=== PATIENT | female | born 1990 | race African-American/Black ===

== ENCOUNTER 2023-09-06 09:08 | Inpatient (IN) | payer BC, OTHER ==
[2023-09-06 10:07] LABS: BASO % 0.4 % (0-2.0); EOS % 0.3 % (0-4.5); HEMATOCRIT 33.6 % (32.4-45.2); HEMOGLOBIN 10.5 GM/dL (10.7-15.3); LYMPH % 20.5 % (8-40); MCH 24.6 pg (25.7-33.7); MCHC 31.2 g/dl (32.0-36.0); MEAN CELL VOLUME 78.9 fl (80-96); MEAN PLT VOLUME 8.1 fl (7.5-11.1); MONO % 4.8 % (3.8-10.2); PLATELET COUNT 315 10^3/uL (134-434); RBC 4.26 M/mm3 (3.60-5.2); RDW 18.8 % (11.6-15.6); WHITE BLOOD COUNT 9.5 K/mm3 (4.0-10.0)
[2023-09-06 10:14] LABS: INR 0.98 (0.83-1.09); PROTHROMBIN TIME (PATIENT) 11.4 SEC (9.7-13.0)
[2023-09-06 10:21] LABS: POTASSIUM 3.2 mmol/L (3.5-5.1)
[2023-09-06 10:23] LABS: CALCIUM 8.2 mg/dL (8.5-10.1)
[2023-09-06 10:24] LABS: BLOOD UREA NITROGEN 4.6 mg/dL (7-18)
[2023-09-06 10:27] LABS: CREATININE 0.5 mg/dL (0.55-1.3)
[2023-09-06 10:59] VITALS: BMI 38.7
[2023-09-06] MEDS: ELECTROLYTE-148 SOLN 1,000 ML IV SCH (12:00)
[2023-09-06] MEDS: OXYTOCIN 30 UNITS in 0.9% NS 30 UNIT/500 ML INFUS.BAG IVPB SCH (12:50)
[2023-09-06] MEDS ORDERED: FENTANYL/BUPIVACAINE/NS/PF - PCEA - 50 ML DISP.SYRIN EP ONE (20:47)
[2023-09-06] MEDS ORDERED: LIDOCAINE HCL/EPINEPHRINE/PF 10 ML VIAL ONE (21:08)
[2023-09-06] MEDS ORDERED: BUPIVACAINE HCL/PF 0.25% (2.5MG/ML) 10 ML VIAL ONE (21:08)
[2023-09-06] MEDS: FENTANYL/BUPIVACAINE/NS/PF - PCEA - 50 ML DISP.SYRIN EP SCH (21:30)
[2023-09-06] MEDS ORDERED: NALOXONE HCL 0.4 MG/ML VIAL IVPUSH PRN (21:40)
[2023-09-07] MEDS ORDERED: FENTANYL/BUPIVACAINE/NS/PF - PCEA - 50 ML DISP.SYRIN EP ONE ×4 (02:48→16:17)
[2023-09-07] MEDS: FENTANYL/BUPIVACAINE/NS/PF - PCEA - 50 ML DISP.SYRIN EP SCH ×4 (02:50→16:25)
[2023-09-07] MEDS: ELECTROLYTE-148 SOLN 1,000 ML IV SCH ×2 (08:28→16:20)
[2023-09-07] MEDS ORDERED: OXYTOCIN 30 UNITS in 0.9% NS 30 UNIT/500 ML INFUS.BAG IVPB ONE ×2 (15:23→19:45)
[2023-09-07] MEDS: OXYTOCIN 30 UNITS in 0.9% NS 30 UNIT/500 ML INFUS.BAG IVPB SCH (16:00)
[2023-09-07] MEDS ORDERED: SODIUM BICARBONATE 8.4% 50 MEQ/50 ML DISP.SYRIN ONE (19:45)
[2023-09-07] MEDS ORDERED: LIDOCAINE HCL/EPINEPHRINE/PF 10 ML VIAL ONE (19:45)
[2023-09-07] MEDS ORDERED: KETOROLAC TROMETHAMINE 30 MG/1 ML VIAL ONE ×2 (19:46→21:33)
[2023-09-07] MEDS ORDERED: ceFAZolin SODIUM 1 GM VIAL ONE (19:46)
[2023-09-07] MEDS ORDERED: PHENYLEPHRINE HCL 10 MG/1 ML SINGLE DOSE VIAL ONE (19:46)
[2023-09-07] MEDS ORDERED: ONDANSETRON 4 MG/2 ML VIAL ONE (19:46)
[2023-09-07] MEDS ORDERED: morphine SULFATE/PF 1 MG/2 ML (2cc Syringe - QUVA) ONE (19:46)
[2023-09-07] MEDS ORDERED: FENTANYL CITRATE/PF 50 MCG/ML VIAL ONE (19:47)
[2023-09-07] MEDS ORDERED: SODIUM CHLORIDE 0.9% P/F 10 ML VIAL IJ ONE (19:48)
[2023-09-07 21:48] LABS: CORD BASE EXCESS -2.2 mmol/L (0-2); CORD HCO3 24.1 mmHg (20-29); CORD PCO2 46.6 mmHg (30-78); CORD pH 7.331 (7.14-7.44)
[2023-09-07] MEDS ORDERED: morphine SULFATE/PF 1 MG/2 ML (2cc Syringe - QUVA) IT ONE (21:54)
[2023-09-07] MEDS ORDERED: ONDANSETRON 4 MG/2 ML VIAL IVPUSH PRN (21:54)
[2023-09-07] MEDS ORDERED: METHYLERGONOVINE MALEATE 0.2 MG/1 ML AMP IM PRN (22:41)
[2023-09-08] MEDS: ACETAMINOPHEN 1000 MG/100 ML BAG IVPB SCH ×2 (00:25→03:52)
[2023-09-08] MEDS: FENTANYL/BUPIVACAINE/NS/PF - PCEA - 50 ML DISP.SYRIN EP SCH (00:25)
[2023-09-08] MEDS: IBUPROFEN 800 MG/8 ML IJ IVPB SCH ×2 (00:25→06:32)
[2023-09-08] MEDS: OXYTOCIN 20 UNITS in 0.9% NS 20 UNIT/1,000 ML INFUS.BAG IV SCH ×2 (00:26→03:51)
[2023-09-08 08:01] LABS: BASO % 0.4 % (0-2.0); EOS % 0.1 % (0-4.5); HEMATOCRIT 30.6 % (32.4-45.2); HEMOGLOBIN 9.5 GM/dL (10.7-15.3); LYMPH % 17.1 % (8-40); MCH 24.7 pg (25.7-33.7); MCHC 31.1 g/dl (32.0-36.0); MEAN CELL VOLUME 79.4 fl (80-96); MEAN PLT VOLUME 8.2 fl (7.5-11.1); MONO % 6.1 % (3.8-10.2); NEUT % 76.3 % (42.8-82.8); PLATELET COUNT 279 10^3/uL (134-434); RBC 3.85 M/mm3 (3.60-5.2); WHITE BLOOD COUNT 10.9 K/mm3 (4.0-10.0)
[2023-09-08] MEDS ORDERED: oxyCODONE HCL 5 MG TABLET PO PRN (10:41)
[2023-09-08] MEDS: POTASSIUM CHLORIDE TABS 20 MEQ TABLET.ER (FP) PO SCH (11:02)
[2023-09-08] MEDS: ACETAMINOPHEN 325 MG TABLET (FP) PO SCH ×3 (11:02→22:11)
[2023-09-08] MEDS: PRENATAL VITAMINS W/ FOLIC ACID TABLET (FP) PO SCH (11:03)
[2023-09-08] MEDS: HEPARIN NA (PORCINE) 5,000 UNITS/ML 1ML VIAL SQ SCH ×2 (11:03→22:11)
[2023-09-08] MEDS: IBUPROFEN 600 MG TABLET (FP) PO SCH (18:06)
[2023-09-08] MEDS ORDERED: BISACODYL 10 MG SUPP.RECT RC PRN (22:41)
[2023-09-09] MEDS: IBUPROFEN 600 MG TABLET (FP) PO SCH ×4 (00:27→18:04)
[2023-09-09] MEDS: ACETAMINOPHEN 325 MG TABLET (FP) PO SCH ×4 (04:21→22:24)
[2023-09-09] MEDS: SIMETHICONE 80 MG TAB.CHEW (FP) PO PRN ×4 (06:22→22:22)
[2023-09-09] MEDS: PRENATAL VITAMINS W/ FOLIC ACID TABLET (FP) PO SCH (10:47)
[2023-09-09] MEDS: POTASSIUM CHLORIDE TABS 20 MEQ TABLET.ER (FP) PO SCH (10:48)
[2023-09-09] MEDS: HEPARIN NA (PORCINE) 5,000 UNITS/ML 1ML VIAL SQ SCH ×2 (10:49→22:22)
[2023-09-09 13:16] VITALS: RESP 18
[2023-09-10] MEDS: IBUPROFEN 600 MG TABLET (FP) PO SCH ×3 (00:05→12:57)
[2023-09-10] MEDS: ELECTROLYTE-148 SOLN 1,000 ML IV SCH (01:58)
[2023-09-10] MEDS: OXYTOCIN 20 UNITS in 0.9% NS 20 UNIT/1,000 ML INFUS.BAG IV SCH (01:59)
[2023-09-10] MEDS: FENTANYL/BUPIVACAINE/NS/PF - PCEA - 50 ML DISP.SYRIN EP SCH (01:59)
[2023-09-10] MEDS: ACETAMINOPHEN 325 MG TABLET (FP) PO SCH ×2 (03:51→10:49)
[2023-09-10 07:25] LABS: BASO % 0.3 % (0-2.0); HEMATOCRIT 28.9 % (32.4-45.2); HEMOGLOBIN 9.1 GM/dL (10.7-15.3); LYMPH % 24.8 % (8-40); MCH 24.8 pg (25.7-33.7); MCHC 31.6 g/dl (32.0-36.0); MEAN CELL VOLUME 78.4 fl (80-96); MEAN PLT VOLUME 7.7 fl (7.5-11.1); NEUT % 66.9 % (42.8-82.8); PLATELET COUNT 337 10^3/uL (134-434); RBC 3.69 M/mm3 (3.60-5.2); RDW 18.7 % (11.6-15.6)
[2023-09-10] MEDS: PRENATAL VITAMINS W/ FOLIC ACID TABLET (FP) PO SCH (10:49)
[2023-09-10] MEDS: POTASSIUM CHLORIDE TABS 20 MEQ TABLET.ER (FP) PO SCH (10:49)
[2023-09-10] MEDS: HEPARIN NA (PORCINE) 5,000 UNITS/ML 1ML VIAL SQ SCH (10:54)
[2023-09-10 11:07] VITALS: BP 124/84; PULSE 94; TEMP 98.6
== END 2023-09-10 12:45 | disposition home or self-care (01) | DRG 788 ==
LOC: JLDR 09:08 → J3W 09-07 23:17
PROVIDERS: ADMIT Obstetrics & Gynecology; ATTEND Obstetrics & Gynecology
PROC: 10D00Z1 Extraction of Products of Conception, Low, Open Approach (ICD-10-PCS; principal; 2023-09-07)
DX: O62.1 Secondary uterine inertia (principal); O24.425 Gestational diabetes mellitus in childbirth, controlled by oral hypoglycemic drugs; O34.13 Maternal care for benign tumor of corpus uteri, third trimester; D25.2 Subserosal leiomyoma of uterus; Z3A.39 39 weeks gestation of pregnancy; Z37.0 Single live birth
CPT/HCPCS: 36415; 36600; 80048; 82803; 82962; 85025; 85610; 85730; 86780; 86850; 86900; 86901; 88307-TC; J1644

== ENCOUNTER 2024-03-11 14:21 | Inpatient (IN) | payer BC, OTHER ==
[2024-03-11 15:55] LABS: EPI CELLS 15 /uL (0-25.1); HYALINE CASTS 0 /uL (0-3.1); URINE APPEARANCE CLEAR; URINE BACTERIA 860 /uL (0-1359); URINE BILIRUBIN NEGATIVE (NEGATIVE); URINE COLOR YELLOW; URINE GLUCOSE (UA) NEGATIVE (NEGATIVE); URINE KETONE NEGATIVE (NEGATIVE); URINE LEUK ESTERASE 1+ (NEGATIVE); URINE NITRITE NEGATIVE (NEGATIVE); URINE PROTEIN NEGATIVE (NEGATIVE); URINE RBC 97 /uL (0-23.9); URINE UROBILINOGEN 0.2 mg/dL (0.2-1.0); URINE WBC 59 /uL (0-25.8)
[2024-03-11 16:04] LABS: BASO % 0.5 % (0-2.0); EOS % 0.7 % (0-4.5); HEMATOCRIT 36.6 % (32.4-45.2); HEMOGLOBIN 11.7 GM/dL (10.7-15.3); LYMPH % 27.9 % (8-40); MCH 24.6 pg (25.7-33.7); MEAN CELL VOLUME 76.7 fl (80-96); MEAN PLT VOLUME 6.7 fl (7.5-11.1); MONO % 5.3 % (3.8-10.2); NEUT % 65.6 % (42.8-82.8); PLATELET COUNT 472 10^3/uL (134-434); RBC 4.77 M/mm3 (3.60-5.2); RDW 14.6 % (11.6-15.6)
[2024-03-11] MEDS ORDERED: ACETAMINOPHEN INJECTION 100 ML IVPB ONE (16:05)
[2024-03-11] MEDS ORDERED: ONDANSETRON 4 MG/2 ML VIAL ONE (16:05)
[2024-03-11] MEDS: ONDANSETRON 4 MG/2 ML VIAL IVPUSH ONE (16:17)
[2024-03-11] MEDS: SODIUM CHLORIDE 0.9% 500 ML INFUS.BAG IV ONE (16:17)
[2024-03-11] MEDS: ACETAMINOPHEN 1000 MG/100 ML BAG IVPB ONE (16:17)
[2024-03-11] MEDS: morphine CARPU-JECT 2 MG/1 ML DISP.SYRIN IVPUSH ONE ×2 (16:18→18:40)
[2024-03-11 16:33] LABS: POTASSIUM 4.2 mmol/L (3.5-5.1)
[2024-03-11 16:35] LABS: BLOOD UREA NITROGEN 12.5 mg/dL (7-18)
[2024-03-11 16:36] LABS: ALBUMIN 3.6 g/dl (3.4-5.0)
[2024-03-11 16:38] LABS: CREATININE 1.1 mg/dL (0.55-1.3)
[2024-03-11 16:40] LABS: BILIRUBIN,TOTAL 0.4 mg/dL (0.2-1); TOT PROT 7.4 g/dl (6.4-8.2)
[2024-03-11] MEDS ORDERED: KETOROLAC TROMETHAMINE 30 MG/1 ML VIAL ONE (19:09)
[2024-03-11] MEDS ORDERED: TAMSULOSIN HCL 0.4 MG CAP ONE (19:09)
[2024-03-11] MEDS: TAMSULOSIN HCL 0.4 MG CAP PO ONE (19:24)
[2024-03-11] MEDS ORDERED: CEFTRIAXONE 1 GM/50 ML BAG ONE (19:27)
[2024-03-11] MEDS: CEFTRIAXONE 1 GM in DEXTROSE 5%-WATER - 100 ML IVPB ONE (19:33)
[2024-03-11] MEDS: KETOROLAC TROMETHAMINE 30 MG/1 ML VIAL IVPUSH ONE (19:33)
[2024-03-11] MEDS ORDERED: ACETAMINOPHEN 1000 MG/100 ML BAG IVPB PRN (23:04)
[2024-03-11] MEDS: SODIUM CHLORIDE 1,000 ML IV SCH (23:53)
[2024-03-12] MEDS: ONDANSETRON 4 MG/2 ML VIAL IVPUSH PRN (02:07)
[2024-03-12] MEDS: KETOROLAC TROMETHAMINE 15 MG/ML VIAL IVPUSH PRN (03:28)
[2024-03-12 08:27] LABS: CHLORIDE 107 mmol/L (98-107); SODIUM 137 mmol/L (136-145)
[2024-03-12 08:30] LABS: CALCIUM 8.7 mg/dL (8.5-10.1)
[2024-03-12 08:31] LABS: ALBUMIN 2.9 g/dl (3.4-5.0); ANION GAP 4 mmol/L (4-13); BLOOD UREA NITROGEN 8.2 mg/dL (7-18); CO2 26 mmol/L (21-32); GLUCOSE,RANDOM 91 mg/dL (74-106); HEMATOCRIT 36.1 % (32.4-45.2); HEMOGLOBIN 11.3 GM/dL (10.7-15.3); INR 1.08 (0.83-1.09); MAGNESIUM 2.3 mg/dL (1.8-2.4); MCH 24.4 pg (25.7-33.7); MCHC 31.3 g/dl (32.0-36.0); MEAN CELL VOLUME 78.1 fl (80-96); PLATELET COUNT 421 10^3/uL (134-434); PROTHROMBIN TIME (PATIENT) 12.2 SEC (9.7-13.0); RBC 4.63 M/mm3 (3.60-5.2); RDW 14.4 % (11.6-15.6); WHITE BLOOD COUNT 7.2 K/mm3 (4.0-10.0)
[2024-03-12 08:34] LABS: CREATININE 0.9 mg/dL (0.55-1.3); PHOSPHOROUS 3.5 mg/dL (2.5-4.9); SGOT/AST 21 U/L (15-37); SGPT/ALT 17 U/L (13-61)
[2024-03-12 08:36] LABS: BILIRUBIN,TOTAL 0.5 mg/dL (0.2-1); TOT PROT 6.3 g/dl (6.4-8.2)
[2024-03-12 08:37] LABS: ALK PHOS 89 U/L (45-117)
[2024-03-12] MEDS: TAMSULOSIN HCL 0.4 MG CAP PO SCH (08:38)
[2024-03-12] MEDS: ACETAMINOPHEN 1000 MG/100 ML BAG IVPB SCH (08:50)
[2024-03-12] MEDS ORDERED: KETOROLAC TROMETHAMINE 15 MG/ML VIAL IVPUSH PRN ×2 (14:14→17:29)
[2024-03-12] MEDS ORDERED: MIDAZOLAM HCL 2 MG/2 ML SINGLE DOSE VIAL ONE (15:50)
[2024-03-12] MEDS ORDERED: PROPOFOL 20 ML ONE (15:50)
[2024-03-12] MEDS ORDERED: FENTANYL CITRATE/PF 50 MCG/ML VIAL ONE (15:50)
[2024-03-12] MEDS ORDERED: oxyCODONE HCL 5 MG TABLET PO PRN ×2 (16:19→17:29)
[2024-03-12] MEDS ORDERED: LACTATED RINGERS SOLUTION 1,000 ML IV SCH (16:30)
[2024-03-12] MEDS: GENTAMICIN SO4 80 MG/2 ML VIAL IVPB ONE (16:34)
[2024-03-12] MEDS: ceFAZolin SODIUM 1 GM VIAL IVPB ONE (16:34)
[2024-03-12] MEDS ORDERED: ONDANSETRON 4 MG/2 ML VIAL IVPUSH PRN (17:29)
[2024-03-12] MEDS: SODIUM CHLORIDE 1,000 ML IV SCH (18:03)
[2024-03-12] MEDS ORDERED: CEFTRIAXONE 1 GM in DEXTROSE 5%-WATER - 50 ML IVPB SCH (19:00)
[2024-03-12] MEDS: CEFTRIAXONE 1 GM in DEXTROSE 5%-WATER - 50 ML IVPB SCH (19:09)
[2024-03-13 03:35] VITALS: RESP 18
[2024-03-13 10:04] LABS: HEMATOCRIT 35.4 % (32.4-45.2); HEMOGLOBIN 11.3 GM/dL (10.7-15.3); MCH 24.7 pg (25.7-33.7); MEAN CELL VOLUME 77.1 fl (80-96); MEAN PLT VOLUME 7.2 fl (7.5-11.1); PLATELET COUNT 463 10^3/uL (134-434); RBC 4.59 M/mm3 (3.60-5.2); RDW 14.6 % (11.6-15.6); WHITE BLOOD COUNT 10.6 K/mm3 (4.0-10.0)
[2024-03-13 10:27] LABS: CALCIUM 9.2 mg/dL (8.5-10.1)
[2024-03-13 10:28] LABS: ALBUMIN 3.2 g/dl (3.4-5.0); BLOOD UREA NITROGEN 9.8 mg/dL (7-18)
[2024-03-13 10:31] LABS: CREATININE 0.8 mg/dL (0.55-1.3); PHOSPHOROUS 3.6 mg/dL (2.5-4.9)
[2024-03-13 10:33] LABS: BILIRUBIN,TOTAL 0.4 mg/dL (0.2-1)
[2024-03-13 14:54] VITALS: BP 107/59; PULSE 84; TEMP 98.8
[2024-03-13 15:43] VITALS: BMI 36.0
== END 2024-03-13 15:56 | disposition home or self-care (01) | DRG 661 ==
LOC: JER 14:21 → JERBED 19:31 → J6S 03-12 01:01
PROVIDERS: ADMIT Internal Medicine; ATTEND Internal Medicine
PROC: 0T768DZ Dilation of Right Ureter with Intraluminal Device, Via Natural or Artificial Opening Endoscopic (ICD-10-PCS; principal; 2024-03-12 16:00)
PROC: BT1DZZZ Fluoroscopy of Right Kidney, Ureter and Bladder (ICD-10-PCS; 2024-03-12 16:00)
DX: N13.6 Pyonephrosis (principal); R10.9 Unspecified abdominal pain
CPT/HCPCS: 36415; 74177-TC; 76000-TC-FY; 80053; 81003; 83690; 83735; 84100; 84702; 84703; 85025; 85027; 85610; 86850; 86900; 86901; 87086; 93005; 93010; 94760; 99285-25; C1758; C2617; J0131; Q9967

== ENCOUNTER 2024-04-09 03:58 | Day surgery (SDC) | payer BC ==
[2024-03-29 17:30] VITALS: BMI 37.1
[2024-04-09] MEDS ORDERED: MIDAZOLAM HCL 2 MG/2 ML SINGLE DOSE VIAL ONE (13:31)
[2024-04-09] MEDS ORDERED: FENTANYL CITRATE/PF 50 MCG/ML VIAL ONE ×2 (13:31→13:55)
[2024-04-09 16:22] VITALS: TEMP 97
[2024-04-09 16:42] VITALS: BP 122/78; PULSE 90; RESP 16
== END 2024-04-09 15:35 | disposition home or self-care (01) ==
LOC: JASU-SURG 03:58
PROVIDERS: ATTEND Urology
PROC: 0TF3XZZ Fragmentation in Right Kidney Pelvis, External Approach (ICD-10-PCS; principal; 2024-04-09 13:30)
DX: N20.0 Calculus of kidney (principal)
CPT/HCPCS: 81025